=== PATIENT | female | born 2000 | race Caucasian/White ===

== ENCOUNTER 2021-07-10 01:07 | Emergency (ER) | payer OTHER ==
[~2021-07-10] VITALS: Ht 165.1 cm; Wt 63.5 kg
[2021-07-10 01:26] VITALS: BP 132/70
== END 2021-07-10 01:32 | disposition left against medical advice (07) ==
LOC: EDBD 01:07 → ER 01:10
DX: F41.9 Anxiety disorder, unspecified (principal); F12.90 Cannabis use, unspecified, uncomplicated; Z53.21 Procedure and treatment not carried out due to patient leaving prior to being seen by health care provider